=== PATIENT | female | born 1935 ===

== ENCOUNTER 2020-12-23 22:25 | Emergency (ER) | payer OTHER ==
[~2020-12-23] VITALS: Ht 162.6 cm; Wt 54.0 kg
[2020-12-24] MEDS ORDERED: CLEOCIN HCL300 MG PO (02:27)
[2020-12-24] MEDS ORDERED: NAPROXEN375 MG PO (02:27)
[2020-12-24] MEDS ORDERED: INTESTINEX680 M2 PO (02:27)
== END 2020-12-24 02:33 | disposition home or self-care (01) ==
LOC: ER 22:25
DX: S01.82XA Laceration with foreign body of other part of head, initial encounter (principal); W01.118A Fall on same level from slipping, tripping and stumbling with subsequent striking against other sharp object, initial encounter; Y93.89 Activity, other specified; Y92.810 Car as the place of occurrence of the external cause; Y99.8 Other external cause status

== ENCOUNTER 2021-01-03 13:34 | Emergency (ER) | payer OTHER ==
[~2021-01-03] VITALS: Ht 167.6 cm; Wt 54.4 kg
[~2021-01-03 13:34] MED LIST: CLEOCIN HCL300 MG PO; INTESTINEX680 M2 PO; NAPROXEN375 MG PO
== END 2021-01-03 14:57 | disposition home or self-care (01) ==
LOC: ER 13:34
DX: Z48.02 Encounter for removal of sutures (principal)